=== PATIENT | female | born 1945 | race Hispanic/Latino ===

== ENCOUNTER 2018-09-18 22:27 | Emergency (ER) | payer OTHER ==
[2018-09-18 22:27] VITALS: BMI 29.2
[2018-09-18 22:56] VITALS: BP 154/87; PULSE 105; TEMP 97.6; O2SAT 97
[2018-09-19] MEDS ORDERED: Hydrocodone/Acetaminophen 5 mg /300 mg Tab PO STA (00:47)
--- NOTE | 2018-09-19 00:47 | C.PDOC ---
History Of Present Illness 73 year old female normally with poor balance was getting out of a car today when she tripped and fell hitting her left shoulder. Patient currently complains of pain to the left shoulder that radiates down into the bicep. Denies change in sensation or other injuries. - HPI Chief Complaint (Nursing): Trauma History Per: Patient History/Exam Limitations: no limitations Onset/Duration Of Symptoms: Hrs Injury Occurred (Timing): Hours Ago: Location Of Injury: Left: Shoulder Recent travel outside of the [place]: No - Fall Fall:Prior To Injury: Tripped Past Medical History Reviewed: Historical Data, Nursing Documentation, Vital Signs Vital Signs: Last Vital Signs Temp 97.6 F 09/18/18 22:49 Pulse 105 H 09/18/18 22:49 Resp 18 09/18/18 22:49 BP 154/87 H 09/18/18 22:49 Pulse Ox 97 09/18/18 22:49 - Medical History PMH: Anxiety, Arthritis, Asthma, COPD, Depression, Osteoporosis, Post Traumatic Stress Disorder Denies: Bipolar Disorder, Bronchitis, Colonic Polyps, Crohn's Disease, Diverticulitis, Emphysema, Gastritis, Gall Bladder Disease, HIV, Pancreatitis, Paranoia, Pneumonia, Pulmonary Embolism, Chronic Kidney Disease, Rheumatoid Art hritis, Schizophrenia, Sleep Apnea Surgical History: Cholecystectomy Denies: Appendectomy, CABG, Carotid Endarterectomy, Coronary Stent, Endoscopy, Pacemaker, Tonsillectomy - [facility] Procedures DRESSING TECHNIQUES TREATMENT (06/04/15) EXCISION OF RIGHT TOE PHALANX, OPEN APPROACH (06/01/15) GAIT TRAINING/FUNCTIONAL AMBULATION TREATMENT (06/04/15) INTRODUCE REGIONAL ANESTH IN PERIPH NRV, PLEXI, PERC (06/01/15) INTRODUCTION OF SERUM/TOX/VACCINE INTO MUSCLE, PERC APPROACH (06/01/15) REATTACHMENT OF RIGHT ANKLE TENDON, OPEN APPROACH (06/01/15) RELEASE MEDIAN NERVE, OPEN APPROACH (06/01/15) REPAIR RIGHT 2ND TOE, OPEN APPROACH (06/01/15) RESECTION OF RIGHT FOOT BURSA AND LIGAMENT, OPEN APPROACH (06/01/15) THERAPEUTIC EXERCISE TREATMENT OF MUSCULOSK LOW BACK/LE (06/04/15) THERAPEUTIC EXERCISE TREATMENT OF MUSCULOSK WHOLE (06/04/15) Family History: States: Unknown Family Hx - Social History Hx Alcohol Use: No Hx Substance Use: No - Immunization History Hx Tetanus Toxoid Vaccination: No Hx Influenza Vaccination: Yes Hx Pneumococcal Vaccination: No Review Of Systems Constitutional: Negative for: Fever Eyes: Negative for: Pain, Redness ENT: Negative for: Mouth Swelling Cardiovascular: Negative for: Chest Pain, Palpitations Respiratory: Negative for: Cough, Shortness of Breath Gastrointestinal: Negative for: Nausea, Vomiting, Diarrhea Genitourinary: Negative for: Dysuria, Hematuria Musculoskeletal: Positive for: Shoulder Pain (Left). Negative for: Back Pain Skin: Negative for: Rash Neurological: Negative for: Weakness, Numbness, Dizziness Physical Exam - Physical Exam Appears: Non-toxic Skin: Normal Color, Warm, No Rash Head: Atraumatic, Normacephalic Eye(s): bilateral: Normal Inspection, PERRL, EOMI Oral Mucosa: Moist Neck: Normal ROM, No Midline Cervical Tenderness, No Paracervical Tenderness, Supple Chest: Symmetrical, No Tenderness Respiratory: No Accessory Muscle Use, Other (Normal inspiratory effort) Gastrointestinal/Abdominal: Soft, No Tenderness Back: No Vertebral Tenderness, No Paraspinal Tenderness Extremity: Capillary Refill (<2 seconds), Other (Tenderness on palpation of left shoulder, no range of motion of left shoulder secondary to pain, no ecchymosis or deformity. Tenderness to distal left bicep, no elbow or forearm tenderness) Pulses: Left Radial: Normal, Right Radial: Normal Neurological/Psych: Oriented x3, Normal Speech, Normal Cranial Nerves (Grossly intact), Normal Motor, Normal Sensation ED Course And Treatment O2 Sat by Pulse Oximetry: 97 Medical Decision Making Medical Decision Making: patient has a non-displaced humeral head fracture. she has been placed in a sling and given ortho follow up instructions. she was discharged with the escort of her son. Disposition Counseled Patient/Family Regarding: Diagnosis, Need For Followup, Rx Given - Disposition Referrals: Misale Chen III, MD [Staff Provider] - [facility] [Outside] Disposition: HOME/ ROUTINE Disposition Time: 00:45 Condition: STABLE Prescriptions: Hydrocodone/Acetaminophen [Vicodin Es 7.5-300 mg Tablet] 1 each PO TID PRN #12 tablet PRN Reason: Pain, Severe (8-10) RX: Ibuprofen [Motrin Tab] 600 mg PO TID 10 Days tab Instructions: Shoulder Fracture (DC) Forms: [employer] (Thai), General Discharge Instructions - Clinical Impression Clinical Impression: Humeral head fracture - PA / DIRECTOR OF MANAGED SERVICES / Resident Statement MD/DO has reviewed & agrees with the documentation as recorded. - Scribe Statement The provider has reviewed the documentation as recorded by the Scribfélix French All medical record entries made by the Jomaribfélix were at my direction and personally dictated by me. I have reviewed the chart and agree that the record accurately reflects my personal performance of the history, physical exam, medical decision making, and the department course for this patient. I have also personally directed, reviewed, and agree with the discharge instructions and disposition.
[2018-09-19] MEDS ORDERED: Hydrocodone/Acetaminophen 5 mg /300 mg Tab PO ONE (00:54)
[2018-09-19 00:57] VITALS: RESP 20
--- NOTE | 2018-09-19 12:58 | RAD ---
Left shoulder three views HISTORY: Fracture. COMPARISON: 11/17/2016 Findings Fracture deformity of the left proximal humerus at the neck with sclerosis seen at the medial cortex and cortical offset seen at the lateral cortex. Clinical correlation. Inferior subluxation of the humeral head in relationship to the bony glenoid. Rounded ossific density seen at the medial cortex of the proximal medullary cavity. Moderate degenerative changes of the left acromioclavicular joint space. A soft tissue density projects over the proximal medullary cavity on the transscapular Y-view, nonspecific. A large hiatal hernia is noted. Impression: Fracture deformity of the left proximal humerus at the neck with sclerosis seen at the medial cortex and cortical offset seen at the lateral cortex. Clinical correlation. Inferior subluxation of the humeral head in relationship to the bony glenoid. Rounded ossific density seen at the medial cortex of the proximal medullary cavity. Moderate degenerative changes of the left acromioclavicular joint space. A soft tissue density projects over the proximal medullary cavity on the transscapular Y-view, nonspecific. A large hiatal hernia is noted. Please note this case was placed in the PA review folder.
--- NOTE | 2018-09-19 15:44 | RAD ---
Left humerus two views History: Fracture. Comparison: None available. Findings: Fracture deformity of the left proximal humerus with cortical irregularity along the lateral cortex of the humeral neck. Inferior subluxation of the humeral head in relationship to the bony glenoid. Moderate degenerative changes of the glenohumeral and acromioclavicular joint space. Impression: Fracture deformity of the left proximal humerus with cortical irregularity along the lateral cortex of the humeral neck. Inferior subluxation of the humeral head in relationship to the bony glenoid. Moderate degenerative changes of the glenohumeral and acromioclavicular joint space.
== END 2018-09-19 00:57 | disposition home or self-care (01) ==
LOC: C.ER 22:27
DX: S42.295A Other nondisplaced fracture of upper end of left humerus, initial encounter for closed fracture (principal); W01.0XXA Fall on same level from slipping, tripping and stumbling without subsequent striking against object, initial encounter

== ENCOUNTER → 2018-11-30 | Outpatient (CLI) | payer OTHER | END | disposition home or self-care (01) | LOC: C.MAMMO 10:12 | DX: Z12.31 Encounter for screening mammogram for malignant neoplasm of breast (principal); Z13.820 Encounter for screening for osteoporosis ==